=== PATIENT | male | born 1990 | race Two or more races ===

== ENCOUNTER 2018-01-04 13:59 | Emergency (ER) | payer OTHER ==
[~2018-01-04] VITALS: Ht 175.3 cm; Wt 98.0 kg
[2018-01-04 14:19] VITALS: BP 147/109
[2018-01-04] MEDS ORDERED: methylPREDNISolone SOD SUCC 125 MG/2 ML VL IM ONE (14:45)
[2018-01-04] MEDS ORDERED: IPRATROPIUM BROM 0.5 MG/2.5ML INH SOL NEB ONE (14:45)
[2018-01-04] MEDS ORDERED: ALBUTEROL SULF 2.5 MG/0.5ML(0.5%) NEB SOLN NEB ONE (14:45)
== END 2018-01-04 15:21 | disposition home or self-care (01) ==
LOC: ER 13:59
DX: J45.901 Unspecified asthma with (acute) exacerbation (principal)
CPT/HCPCS: 71046; 93005; 94640; 96372; 99284; J2930